=== PATIENT | male | born 1955 | race Caucasian/White ===

== ENCOUNTER 2017-08-22 04:10 | Emergency (ER) | payer SELFPAY ==
[~2017-08-22] VITALS: Ht 165.1 cm; Wt 68.0 kg
[2017-08-22] MEDS ORDERED: Vibramycin100 MG PO (05:57)
== END 2017-08-22 06:15 | disposition home or self-care (01) ==
LOC: ER 04:10
DX: L97.819 Non-pressure chronic ulcer of other part of right lower leg with unspecified severity (principal); L03.115 Cellulitis of right lower limb; Z88.0 Allergy status to penicillin; J44.9 Chronic obstructive pulmonary disease, unspecified; F17.200 Nicotine dependence, unspecified, uncomplicated
CPT/HCPCS: 73590; 99283

== ENCOUNTER 2021-04-06 12:41 | Inpatient (IN) | payer OTHER ==
[~2021-04-06] VITALS: Ht 165.1 cm; Wt 52.8 kg
[~2021-04-06 12:41] MED LIST: Vibramycin100 MG PO
[2021-04-06 13:32] LABS: BASOPHILS ABSOLUTE AUTO 0.06 K/mm3 (0.00-0.23); BASOPHILS PERCENT AUTO 1 % (0-2); EOSINOPHILS ABSOLUTE AUTO 0.08 K/mm3 (0.00-0.68); EOSINOPHILS PERCENT AUTO 1 % (0-6); Hematocrit 32.6 % (37.0-53.0); Hemoglobin 10.3 g/dL (13.5-17.5); IMMATURE GRAN ABSOLUTE AUTO 0.05 K/mm3 (0.00-0.10); IMMATURE GRAN PERCENT AUTO 0 % (0-1); LYMPHOCYTES ABSOLUTE AUTO 0.96 K/mm3 (0.84-5.20); LYMPHOCYTES PERCENT AUTO 7 % (21-46); MONOCYTES ABSOLUTE AUTO 1.06 K/mm3 (0.16-1.47); MONOCYTES PERCENT AUTO 8 % (4-13); Mean Corpuscular HGB Conc 31.6 g/dL (31.5-36.5); Mean Corpuscular Volume 86 fL (80-100); Mean Platelet Volume 9.4 fL (9.1-12.4); NEUTROPHILS ABSOLUTE AUTO 10.85 K/mm3 (1.96-9.15); NEUTROPHILS PERCENT AUTO 83 % (41-73); Platelet Count 687 K/mm3 (150-400); RDW Coefficient Variation 13.5 % (11.7-14.2); RDW Standard Deviation 42.3 fL (35.1-46.3); Red Blood Cell Count 3.81 M/mm3 (4.30-5.90); White Blood Cell Count 13.06 K/mm3 (4.00-11.30)
[2021-04-06 13:39] LABS: Alanine Aminotransfer (ALT/SGP 17 U/L (12-78); Albumin, Blood 1.9 g/dL (3.4-5.0); Albumin/Globulin Ratio 0.3 (0.8-1.8); Alk Phos 80 U/L (50-136); Anion Gap 8 mmol/L (6-16); Aspartate Aminotrans (AST/SGOT 11 U/L (12-37); Bilirubin, Total 0.4 mg/dL (0.1-1.0); Blood Urea Nitrogen 13 mg/dL (8-24); Bun/Creatinine Ratio 19.4 (12.0-20.0); CO2, Blood 24 mmol/L (21-32); Calcium, Blood 9.4 mg/dL (8.5-10.1); Chloride, Blood 102 mmol/L (98-108); Creatinine, Blood 0.67 mg/dL (0.60-1.20); Globulin, Blood 5.5 g/dL (2.2-4.0); Glomerular Filtration Rate >60 (60-); Glucose, Blood 117 mg/dL (70-99); Potassium, Blood 3.9 mmol/L (3.5-5.5); Sodium, Blood 134 mmol/L (136-145); Total Protein, Blood 7.4 g/dL (6.4-8.2)
[2021-04-06 17:35] LABS: Source, Urine Clean Catch
[2021-04-06 18:02] LABS: Color, Urine Brown (P-Yellow)
[2021-04-06 18:03] LABS: Appearance, Urine Turbid (Clear)
[2021-04-06 18:09] LABS: Red Blood Cells, Urine TNTC /hpf (0-2); White Blood Cells, Urine TNTC /hpf (0-5)
[2021-04-06 18:10] LABS: Bacteria Many /hpf; Squamous Epithelial Cells Few /hpf (Few)
[2021-04-06 18:11] LABS: Cholesterol Crystals Few /hpf; Triple Phosphate Crystals Many /hpf
[2021-04-06 18:12] LABS: Other Crystals Mod /hpf
[2021-04-06 18:15] LABS: Mucus Heavy (0-Heavy)
[2021-04-07 00:41] LABS: Influenza A, PCR NEGATIVE (NEGATIVE); Influenza B, PCR NEGATIVE (NEGATIVE); Resp Syncytial Virus, PCR NEGATIVE (NEGATIVE); SARS-Cov-2 (COVID-19) PCR, MMC NEGATIVE (NEGATIVE)
[2021-04-07 04:30] LABS: Hemoglobin 8.5 g/dL (13.5-17.5); Mean Corpuscular HGB 26.6 pg (26.0-34.0); Mean Corpuscular HGB Conc 31.5 g/dL (31.5-36.5); Mean Corpuscular Volume 85 fL (80-100); Mean Platelet Volume 9.2 fL (9.1-12.4); Platelet Count 612 K/mm3 (150-400); RDW Coefficient Variation 13.7 % (11.7-14.2); RDW Standard Deviation 42.4 fL (35.1-46.3); Red Blood Cell Count 3.19 M/mm3 (4.30-5.90)
--- NOTE | 2021-04-07 04:49 | NUR ---
PATIENT WAS ALERT AND ORIENTED X4, STABLE VITAL SIGNS, NO ACUTE CHANGES. PATIENT DENIED ANY PAIN. PATIENT SLEPT MOST OF THE NIGHT. CALL LIGHT WITH IN REACH AND BED DOWN TO THE LOWEST POSITION. WILL CONTINUE TO MONITOR UNTIL HAND OFF.
[2021-04-07 05:33] LABS: Anion Gap 6 mmol/L (6-16); Blood Urea Nitrogen 15 mg/dL (8-24); Bun/Creatinine Ratio 24.8 (12.0-20.0); CO2, Blood 23 mmol/L (21-32); Calcium, Blood 8.2 mg/dL (8.5-10.1); Chloride, Blood 109 mmol/L (98-108); Creatinine, Blood 0.61 mg/dL (0.60-1.20); Ferritin, Serum 263 ng/mL (26-388); Glomerular Filtration Rate >60 (60-); Glucose, Blood 117 mg/dL (70-99); Iron Serum 9 ug/dL (65-175); Percent Saturation 6.9 % (20.0-50.0); Potassium, Blood 4.5 mmol/L (3.5-5.5); Sodium, Blood 138 mmol/L (136-145); Total Iron Binding Capacity 130 ug/dL (250-450)
--- NOTE | 2021-04-08 02:12 | NUR ---
PHYSICIAN COMMUNICATION CONTACTED KITCHEN AND COUNTER WORKER PHYSICIAN, DR LOPEZ, AT 0 TO NOTIFY HIM THAT THE PATIENT HAD POSITIVE BLOOD CULTURES THAT WERE GRAM POSITIVE COCCI IN CLUSTERS AND THAT THE PARMACIST SAID THAT THE PATIENT'S CURRENT ANTIBIOTIC COVERAGE SHOULD BE SUFFICIENT. NO ORDERS GIVEN. ALSO NOTIFIED HIM THAT THE PATIENT'S CATHETER KEEPS CLOGGING WITH SEDIMENT AND LEAKING EVEN AFTER IT BEING CHANGED IN THE ED AND UP ON THE FLOOR DESPITE ATTEMPTS TO MANUALLY FLUSH THE CATHETER AND TO ASK IF THE PATIENT WOULD BENEFIT FROM CONTINUOUS BLADDER IRRIGATION. DR LOPEZ SAID TO GO AHEAD AND TRY.
[2021-04-08 05:15] LABS: Hemoglobin 7.9 g/dL (13.5-17.5); Mean Corpuscular HGB 26.8 pg (26.0-34.0); Mean Corpuscular HGB Conc 31.6 g/dL (31.5-36.5); Mean Corpuscular Volume 85 fL (80-100); Mean Platelet Volume 9.7 fL (9.1-12.4); Platelet Count 547 K/mm3 (150-400); RDW Coefficient Variation 13.7 % (11.7-14.2); RDW Standard Deviation 42.5 fL (35.1-46.3); Red Blood Cell Count 2.95 M/mm3 (4.30-5.90); White Blood Cell Count 10.12 K/mm3 (4.00-11.30)
[2021-04-08 06:08] LABS: Anion Gap 9 mmol/L (6-16); Blood Urea Nitrogen 16 mg/dL (8-24); Bun/Creatinine Ratio 24.7 (12.0-20.0); CO2, Blood 22 mmol/L (21-32); Calcium, Blood 8.1 mg/dL (8.5-10.1); Chloride, Blood 107 mmol/L (98-108); Creatinine, Blood 0.65 mg/dL (0.60-1.20); Glomerular Filtration Rate >60 (60-); Glucose, Blood 108 mg/dL (70-99); Potassium, Blood 4.4 mmol/L (3.5-5.5); Sodium, Blood 138 mmol/L (136-145)
--- NOTE | 2021-04-08 07:10 | NUR ---
SHIFT SUMMARY PATIENT ALERT AND ORIENTED. MEDICATED PER EMAR FOR FEVER. HAS LESS COMPLAINTS DISCOMFORT SINCE STARTING CONTINUOUS BLADDER IRRIGATION. NO COMPLAINTS OF SHORTNESS OF BREATH. NO OTHER ISSUES NOTED OVERNIGHT. BED IN LOWEST POSITION. CALL LIGHT WITHIN REACH. REPORT GIVEN TO ONCOMING RN.
--- NOTE | 2021-04-08 18:51 | NUR ---
PT AAOX4 ABLE TO MAKE NEEDS KNOWN. COMPLAINT WITH MEDIACTION REGIMEN. CONTINUOUS BLADDER IRRIGATION IN PROGRESS, CLEAR OUTPUT NOTED WITH SEDIMENTS. PATIENT C/O PAIN TO ABDOMINAL AREA, MEDICATED PER ORDER, EFFECTIVE OUTCOME VOICED. IV ABT CONTINUES NO ADVERSE REACTION NOTED. BED IN LOWEST POSITION. CALL LIGHT IN REACH.
--- NOTE | 2021-04-09 03:33 | NUR ---
VERGARA/ BLADDER IRRIGATION AROUND 0 WE BEGAN HAVING ISSUES WITH CATHETER, VERGARA STARTED LEAKING HEAVILY AT U[place]TH[place], AND HAD COMPLETELY STOPPED FLOWING. PRIOR TO THAT TIME CONTINUOUS BLADDER IRRIGATION HAD BEEN FLOWING WIHTOUT ANY ISSUES. I MANUALLY IRRIGATED WITHOUT SUCCESS. STUMMEL SELECTOR OCTAVIO BOSWELL WAS ABLE TO IRRIGATE AND GET CATHETER TO FLOW FOR A SHORT TIME BUT WITHIN A HALF HOUR CATHETER CLOGGED AGAIN. I TRIED IRRIGATING AGAIN WITHOUT SUCCESS. 0000 I DISCUSSED WITH STUMMEL SELECTOR OCTAVIO BOSWELL THAT CATHETER HAD CLOGGED AGAIN. WE DECIDED TO CONSULT ICU STUMMEL SELECTOR AL DURÁN WHO SUGESSTED CHANGING OUT CATHETER COMPLETELY TO SEE IF THAT WOULD SOLVE ISSUE. 0115 THIS RN REPLACED CATHETER WITH A 20 F, 30 CC ML BALLOON THREE WAY VERGARA. CATHETER INSERTION WAS DIFFICULT AND REQUIRED THE ASSISTANCE OF TWO RN'S. MORIAH SOUZA, AND TOM UNGER. AFTER INSERTION WE GOT URINE FLOW AND OBTAINED ABOUT 300 MLS OF YELLOW URINE WITH HEAVY SEDIMENT. BUT WITHIN 5 MINUTES CATHETER STOPPED FLOWING AGAIN. THIS RN AND TOM UNGER IRRIGATED AGAIN AND PULLED OUT A THICK MUCOUS PLUG BUT CATHETER REMAIN CLOGGED AND WOULD NOT FLOW. DR. VICK CALLED INITALLY AT 2330 TO NOTIFY HER OF THE ISSUES WE WERE HAVING WITH PAITENT'S CATHETER. DR. ALDANA AWARE THAT NEW CATHETER WAS TO BE PLACED. 0315 DR. VICK CALLED AND NOTIFIED THAT NEW CATHETER PLACEMENT WAS UNSUCCESSFUL AND THAT CATHETER STILL WOULD NOT DRAIN DESPITE MANUAL IRRIGATION AND REPOSITIONING OF THE CATHETER. DR. VICK SUSPECTS THAT BLADDER MASS IS OBSTRUCTING THE FLOW OF URINE AND PREVENTING THE CATHETER FROM DRAINING. NO UROLOGY AT THIS FACILITY. DR. ALDANA DOES NOT WANT TO GO THROUGH WITH COBRA TRANSFER AT THIS TIME, AND WOULD LIKE STAFF TO PERFORM Q2HR BLADDER SCANS. SHE STATES THAT COBRA TRANSFER CAN BE ARRANGED IN THE MORNING DURING DAYSHIFT. BLADDER SCAN READINGS REMAIN LOW, BUT GETTING AN ACCURATE READING IS DIFFICULT POSSIBLY DUE TO THE MASS. IRRIGATION HAS BEEN STOPPED. PT MEDICATED FOR PAIN, MONITORING CLOSELY. BOTH STUMMEL SELECTOR'S AND NURSING STOVE BOTTOM WORKER DIANNA LLAMAS MADE AWARE.
[2021-04-09 05:06] LABS: Hemoglobin 8.1 g/dL (13.5-17.5); Mean Corpuscular HGB 26.7 pg (26.0-34.0); Mean Corpuscular HGB Conc 31.2 g/dL (31.5-36.5); Mean Corpuscular Volume 86 fL (80-100); Mean Platelet Volume 9.7 fL (9.1-12.4); Platelet Count 583 K/mm3 (150-400); RDW Coefficient Variation 13.6 % (11.7-14.2); RDW Standard Deviation 42.8 fL (35.1-46.3); Red Blood Cell Count 3.03 M/mm3 (4.30-5.90); White Blood Cell Count 9.69 K/mm3 (4.00-11.30)
[2021-04-09 05:54] LABS: Anion Gap 8 mmol/L (6-16); Blood Urea Nitrogen 17 mg/dL (8-24); Bun/Creatinine Ratio 27.5 (12.0-20.0); CO2, Blood 25 mmol/L (21-32); Calcium, Blood 8.4 mg/dL (8.5-10.1); Chloride, Blood 106 mmol/L (98-108); Creatinine, Blood 0.62 mg/dL (0.60-1.20); Glomerular Filtration Rate >60 (60-); Glucose, Blood 109 mg/dL (70-99); Potassium, Blood 4.1 mmol/L (3.5-5.5); Sodium, Blood 139 mmol/L (136-145)
--- NOTE | 2021-04-09 08:12 | NUR ---
SHIFT SUMMARY: AOX3, QUITE BUT COOPERATIVE. FRAIL APPEARING, CACHEXIA. DENIES PAIN OR DISCOMFORT. CONTINUOUS BLADDER IRRIGATION WITH 300 IN, IRRIGATION HAS BEEN SLOW DUE TO CATHETER NOT FLOWING WELL. DURING HIS SLEEP APPARENTLY IT PLUGGED AND BACKFLOWED ONTO THE BED. FLUSHED CATHETER SEVERAL TIMES FOR IT TO FLOW WELL. INCREASED IRRIGATION TO HAVE EVEN FLOW. SLEPT WELL T/O THE NIGHT. FEBRILE AT 100. TYLENOL GIVEN. LAST TEMP 98.9. HYPOTENSIVE AT TIMES IN THE 90'S. NO OTHER CHANGES TO REPORT. CALL LIGHT IN REACH.
--- NOTE | 2021-04-09 10:48 | NUR ---
PATIENT ALERT AND ORIENTED X4. NEURO WNL. PERRLA. ABLE TO MOVE ALL EXTREMITIES. OVERALL WEAKNESS NOTED. WORKING WITH PHYSICAL THERAPY. ON ROOM AIR, SATING HIGH 90'S. LUNGS SOUNDING CLEAR. NO COUGH. NO TELE. BP STABLE WITH SBP IN 90'S AND HR 70'S. DENIES CHEST PAIN/PRESSURE. TEMP WNL. DENIES ABDOMINAL PAIN/NAUSEA. [address] WITH CONTINUOUS IRRIGATION. HAVING TO MANUALLY IRRIGATED WITH 40ML TO DISLODGE SEDIMENT ABOUT EVERY HOUR. NO BLOOD VISIBLE IN VERGARA DRAINAGE. SEDIMENT AND YELLOW TINGED. NOT EATING VERY WELL, SMALL APPETITE. ABLE TO TAKE PILLS WHOLE WITH WATER. PHYSICAL THERAPY IN TO SEE PATIENT THIS AM. OVERALL WEAKNESS. CALL LIGHT IN REACH. SLEEPING ON AND OFF. DENIES NEEDS AT THIS TIME. WILL CONTINUE TO MONITOR.
--- NOTE | 2021-04-09 18:24 | NUR ---
SHIFT SUMMARY: NO ACUTE CHANGES. PATIENT SLEPT MOST OF DAY. BLADDER IRRIGATION CONTINUES. HAVING TO DO MANUAL IRRIGATION EVERY 1-2 HOURS TO REMOVE SEDIMENT THAT GETS CLOGGED. BP ON SOFTER SIDE. PATIENT DENIES BEING DIZZY. ANTIBIOTICS INFUSED. EATING DINNER AT THIS TIME. DENIES NEEDS WILL CONTINUE TO MONITOR AND REPORT OFF.
--- NOTE | 2021-04-10 01:15 | NUR ---
VERGARA CATHETER NEW CATHETER INSERTED. 20 F, [address] VERGARA[address] AMANDA SOUZA ASSISTED WITH CATHETER INSERTION IT WAS VERY DIFFICULT TO PLACE VERGARA. MORIAH ADVANCED CATHETER AND INFLATED BALLOON. STERILE TECHNIQUE MAINTAINED. CATHETER BEGAN TO FLOW AND INITIALLY WE OBTAINED 300 CC OF YELLOW URINE WITH SEDIMENT, BEFORE CATHETER STOPPED FLOWING.
--- NOTE | 2021-04-10 01:30 | NUR ---
SCAN WAS 21MLS POST NEW 20FR VERGARA INSERTION. PATENT AND DRAINAING YELLOW, CLOUDY URINE W/SEDIMENT AD PINK/BROWN SLOUGH. APPROX 300 MLS UO UPON ESTABLISHING VERGARA DRAINAGE. BLADDER IRRIGATION RESTARTED AT THIS TIME.
--- NOTE | 2021-04-10 01:45 | NUR ---
VERGARA CATH NO LONGER PATENT OR DRAINING ONCE AGAIN. BLADDER IRRIGATION TEMPORARILY STOPPED AND STAFF ATTEMPTED TO MANUALLY FLUSH/EXPEL SEDIMENT THAT WAS BLOCKING DRAINAGE. BLADDER SCAN AT THIS TIME NOW 84MLS AND PT COMPLAINING OF PAIN, SPASMS AND DISTENSION. LARGE AMT OF SLOUGH AND SEDIMENT MANUALLY REMOVED BUT IT REQUIRED MULTIPLE ROUNDS OF FLUSHING AND EXPELLING TO MAINTAIN ANY PATENCY. EVEN STILL URINE WAS NOTED TO BE LEAKING AT MEATUS AROUND CATHETER. BLADDER IRRIGATION RESTARTED W/LIGHT YELLOW URINE NOTED TO LEAK AROUND CATH DESPITE PATENCY AND CLEAR YELLOW URINE W/SEDIMENT DRAINING TO BAG. WILL MONITOR CLOSELY AND TROUBLESHOOT PRN.
--- NOTE | 2021-04-10 04:20 | NUR ---
DISCUSSED WITH DR DIAZ VIA TELEPHONE THE DIFFICULTIES OF THE BLADDER IRRIGATION NOT WORKING WELL. IT IS NOT DRAINING AT ALL VIA THE VERGARA WITH CONTINUOUS BLADDER IRRIGATION GOING, EVEN WHEN RUN AT A HIGHER RATE, INSTEAD THE BLADDER IRRIGATION FLUID LEAKS OUT AROUND THE VERGARA. THERE DOES NOT APPEAR TO BE ANY URINE IN THE FLUID THAT LEAKS OUT, IT IS CLEAR FLUID. WHEN MANUALLY IRRIGATING, A SMALL AMOUNT, ABOUT 50 MLS, WILL COME OUT WITH QUITE A BIT OF SEDIMENT AND CLOUDY/YELLOW. THAT WILL FLOW FOR A FEW SECONDS AND THEN STOP. INITIALLY WHEN MANUALLY IRRIGATING YOU COULD PULL BACK WHAT YOU FLUSHED IN TO THE BLADDER. NOW HOWEVER, WE ARE UNABLE TO PULL BACK WHAT WE HAVE FLUSHED IN TO THE BLADDER. HOWEVER, STATED ABOVE, WHEN UNCLAMPED AFTER FLUSHING INTO THE BLADDER, IT WILL DRAIN A SMALL AMOUNT OUT. BUT NOT EVERY TIME, AT TIMES NOTHING DRAINS OUT EVEN WITH MANUAL IRRIGATION. WE ATTEMPTED MULT TIMES TO DO A BLADDER SCAN, IT WILL ONLY CORE SETTER 30 MLS, I THINK THIS MIGHT BE THE BALOON OF THE VERGARA AND NOT THE BLADDER IT IS READING. I SPOKE WITH DR ALDANA ABOUT THE POSSIBLE NEED FOR A RADIOLOGY SCAN TO REEVALUATE WHAT IS HAPPENING WITH THE PATIENTS BLADDER. NO ORDERS FOR THAT AT THIS TIME. I ALSO SPOKE WITH HER REGARDING THE CONCERN FOR THE NEED FOR UROLOGY INTERVENTION. ORDERS TO CONTINUE TO BLADDER SCAN Q 1-2 HOURS, TRANSFER TO PCU FOR HIGHER LEVEL OF CARE AND CLOSER MONITORING AND TO READDRESS THE POSSIBLE TRANSFER TO ANOTHER FACILITY FOR UROLOGY LATER THIS MORNING.
--- NOTE | 2021-04-10 04:32 | NUR ---
TRANSFER PT TO BE TRANSFER TO ICU, PCU STATUS FOR CLOSER MONITORING AND Q 2HR BLADDER SCANS. REPORT GIVEN TO AL VERGARA RELATIONSHIP ASSOCIATE. PT RESTING IN BED AT THIS TIME WITHOUT DISTRESS AND IS WITHOUT PAIN.
--- NOTE | 2021-04-10 04:41 | NUR ---
VERGARA/ BLADDER IRRIGATION AROUND 2329 WE BEGAN HAVING ISSUES WITH CATHETER, VERGARA STARTED LEAKING HEAVILY AT URETH[place], AND HAD COMPLETELY STOPPED FLOWING. PRIOR TO THAT TIME CONTINUOUS BLADDER IRRIGATION HAD BEEN FLOWING WIHTOUT ANY ISSUES, AND PT DID NOT HAVE ANY COMPLAINTS OF PAIN. WHEN CATHETER STOPPED FLOWING I MANUALLY IRRIGATED WITHOUT SUCCESS. NOTE KEEPER OCTAVIO BOSWELL WAS ABLE TO IRRIGATE AND GET CATHETER TO FLOW FOR A SHORT TIME BUT WITHIN A HALF HOUR CATHETER CLOGGED AGAIN. I TRIED IRRIGATING AGAIN WITHOUT SUCCESS. 0000: I DISCUSSED WITH NOTE KEEPER OCTAVIO BOSWELL THAT CATHETER HAD CLOGGED AGAIN. WE DECIDED TO CONSULT ICU NOTE KEEPER AL DURÁN WHO SUGESSTED CHANGING OUT CATHETER COMPLETELY TO SEE IF THAT WOULD SOLVE ISSUE. 0115: THIS RN REPLACED CATHETER WITH A 20 F, 30 CC ML BALLOON THREE WAY VERGARA. CATHETER INSERTION WAS DIFFICULT AND REQUIRED THE ASSISTANCE OF TWO RN'S. MORIAH SOUZA, AND TOM UNGER. AFTER INSERTION WE GOT URINE FLOW AND OBTAINED ABOUT 300 MLS OF YELLOW URINE WITH HEAVY SEDIMENT. BUT WITHIN 5 MINUTES CATHETER STOPPED FLOWING AGAIN. THIS RN AND TOM UNGER IRRIGATED AGAIN MULTPLE TIMES AND PULLED OUT A THICK MUCOUS PLUG BUT CATHETER REMAIN CLOGGED AND WOULD NOT FLOW. THIS RN AND NOTE KEEPER'S WERE WITH PT FROM 2329 UNTIL TRANSFER TO ICU/PCU STATUS AT 439. BLADDER SCANS PERFORMED BUT CAME READINGS UNDER 100CC, READINGS WERE DIFFERENT WITH EACH SCAN AND MOST LIKELY INACCURATE. DR. VICK MADE AWARE OF THIS BUT DID NOT WANT TO ORDER ABDOMINAL CT TO GET A CLOSER LOOK AT BLADDER.
--- NOTE | 2021-04-10 04:55 | NUR ---
TRANSFERRED PT TRANSFERRED TO ICU 8/ PCU STATUS AT 0448, REPORT HAS BEEN GIVEN. PT BELONGINGS IN PLACE.
--- NOTE | 2021-04-10 05:08 | NUR ---
PATIENT ARRIVED TO UNIT AT APPROXIMATELY 0450 VIA STRETCHER; SLIDE FROM MEDICAL TO ICU STRETCHER WITH MAX ASSIST. CONT. BLADDER IRRIGATION CLAMPED. PATIENT ALERT AND ORIENTED X4; PATIENT REPORTS HEADACHE 7/10 AND PENIS PAINFUL TO TOUCH DUE TO MULTIPLE CATHETER INSERTIONS AND IRRIGATION. PATIENT ONLY OTHER COMPLAINT IS HE IS COLD; WARM BLANKETS GIVEN. FORCEFUL TURBULENT BLADDER IRRIGATION DONE WITH LARGE SYRINGE DIFFICULT WITH ALOT OF SEDIMENT NOTED; ABLE TO BLADDER IRRIGATION FLOW TO START AGAIN AND CURRENTLY RUNNING. PATIENT REPORTS FEELING LESS PRESSURE AND MORE COMFORTABLE. CONSENTS SIGNED. SR ON HEART MONITOR; OXYGEN SATURATION ABOVE 90% ON ROOM AIR. PIV S/L.
--- NOTE | 2021-04-10 05:45 | NUR ---
PATIENT CALLED STAFF TO ROOM TO REPORT THAT CATHETER LEAKING; TURBULENT FORCEFUL BLADDER IRRIGATION COMPLETED AGAIN BY COLLOID MILL OPERATOR AND CHUNKS OF TISSUE AND SEDIMENT IN LINE; CONTINOUS DRAINIAGE RESTARTED.
--- NOTE | 2021-04-10 06:48 | NUR ---
CONTINUOUS BLADDER IRRIGATION FLOWING WELL; SEDIMENT NOTED. NO OTHER ACUTE CHANGES TO REPORT.
--- NOTE | 2021-04-10 07:27 | NUR ---
PT A&OX4. PT DENIES PAIN AT THIS TIME. ECG SHOWS SR. SBP TRENDING 90'S WITH MAP 70. LUNGS COARSE TO UPPER LOBES AND DIMINISHED IN THE BASES. SCATTERED WHEEZES T/O LEFT. PT DENIES SOB. OCCASIONAL, MOIST, NONPRODUCTIVE COUGH. SATS>90% ON RA. PT DENIES NAUSEA, BUT REPORTS HAVING HAD A VERY POOR APPETITE FOR SOME TIME. PT APPEARS EMACIATED. THREE WAY VERGARA WITH CONTINUOUS IRRIGATION CONTINUES-URINE APPEARS CLEAR, YELLOW AND NO SEDIMENT NOTED AT THIS TIME. PT ABLE TO REPOSITION HIMSELF IN BED. CALL LIGHT WITHIN REACH-PT WILL CALL FOR ASSIST PRN.
--- NOTE | 2021-04-10 11:15 | NUR ---
PT HAS BEEN SLEEPING INTERMITTENTLY WHEN NOT DISTURBED. VS WDL. [address] JAI NOTED WITH SOME SEDIMENT-IRRIGATED TO CLEAR. PT DENIES PAIN OR OTHER COMPLAINTS AT THIS TIME. PT REQUESTS TO "GET SOME MORE REST." REQUEST GRANTED. PT STATES THAT HE WILL CALL FOR ASSIST PRN. CALL LIGHT WITHIN REACH.
--- NOTE | 2021-04-10 15:24 | NUR ---
PT RESTS WHEN NOT DISTURBED. VS STABLE. PT DENIES PAIN/DISCOMFORT AT THIS TIME. [address] VERGARA IRRIGATED APROX. EVERY 1 HOUR DUE TO SEDIMENT.
--- NOTE | 2021-04-10 17:37 | NUR ---
PT ATE 100% OF DINNER TRAY. PT SITTING UP IN BED WATCHING TV WITHOUT NOTED DISTRESS. CALL LIGHT WITHIN REACH.
--- NOTE | 2021-04-10 19:00 | NUR ---
PT SUMMONED RN INTO ROOM. PT REPORTS 8/10 BLADDER PAIN. VERGARA LEAKING AROUND THE URETHRA. VERGARA IRRIGATED AND LARGE AMOUNT OF THICK, GRAYISH SEDIMENT AND CLOTS REMOVED. PT MED WITH FENTANYL 25 MCG IVP X 1 FOR PAIN. REPORT GIVEN TO TAPAN LISA.
--- NOTE | 2021-04-10 20:37 | NUR ---
PATIENT RESTING QUIETLY WATCHING TV. VERGARA DRAINING YELLOW URINE WITH WHITE SEDIMENT WITH IRRIGATION SET UP FOR FREQUENT BLADDER IRRIGATIONS DUE TO THE SEDIMENT CLOGGING VERGARA CATH. ABD SOFT SLIGHTLY TENDER. PATIENT ABLE TO POSITION SELF IN BED FOR COMFORT.
[2021-04-11 03:55] LABS: Hematocrit 25.7 % (37.0-53.0); Hemoglobin 8.2 g/dL (13.5-17.5)
[2021-04-11 04:12] LABS: Albumin, Blood 1.7 g/dL (3.4-5.0); Anion Gap 5 mmol/L (6-16); Blood Urea Nitrogen 18 mg/dL (8-24); Bun/Creatinine Ratio 32.3 (12.0-20.0); CO2, Blood 27 mmol/L (21-32); Calcium, Blood 8.7 mg/dL (8.5-10.1); Chloride, Blood 103 mmol/L (98-108); Creatinine, Blood 0.56 mg/dL (0.60-1.20); Glomerular Filtration Rate >60 (60-); Glucose, Blood 109 mg/dL (70-99); Phosphorus, Blood 3.3 mg/dL (2.5-4.9); Potassium, Blood 4.5 mmol/L (3.5-5.5); Sodium, Blood 135 mmol/L (136-145)
--- NOTE | 2021-04-11 05:56 | NUR ---
SUMMARY PATIENT SLEEPING OFF AND ON T/O NIGHT. AWAKENS WITH C/O BURNING TYPE PAIN TO BLADDER AREA. SLOW CONTINUOUS IRRIGATION TO VERGARA, DRAINING YELLOW WITH WHITE SEDIMENT URINE. VERGARA MANUALLY IRRIGATED AND REMOVED LARGE THICK WHITE SEDIMENT TWICE DURING THE NIGHT. PATIENT MEDICATED APROX EVERY 2 HRS WITH FENTANYL FOR C/O BLADDER PAIN.
--- NOTE | 2021-04-11 08:45 | NUR ---
INITIAL ASSESSMENT PATIENT ALERT AND ORIENTED X 4, AFEBRILE. PATIENT HAS FLAT AFFECT, COOPERATIVE. PATIENT WEAK BUT ABLE TO MOVE ALL EXTREMITIES AND REPOSITION SELF IN BED. PATIENT BEING GIVEN PRN PAIN MEDS FOR COMPLAINTS OF BLADDER PAIN. PATIENT SATTING 90% AND GREATER ON RA. LUNGS CLEAR IN UPPER LOBES AND DIMINISHED IN LOWER LOBES. PATIENT IN SR, HR IN THE 70S. BP 100/57. LAST BM DOCUMENTED ON 04/08. PATIENT CACHECTIC. [address] WITH CONTINUOUS BLADDER IRRIGATION. URINE IS MENA IN COLOR WITH LARGE AMOUNTS OF WHITE SEDIMENT. SKIN PALE AND FRAGILE. SCATTERED BRUISING NOTED. IV FLUSHED AND SALINE LOCKED. BED LOW, CALL LIGHT IN REACH. WILL CONTINUE TO MONITOR PATIENT FREQUENTLY THROUGHOUT SHIFT.
--- NOTE | 2021-04-11 12:00 | NUR ---
PATIENT AFEBRILE. HR IN THE 70S. SBP IN THE 90S. 22 BELARUSIAN VERGARA PLACED. Q1H MANUAL BLADDER IRRIGATION. NO OTHER ACUTE CHANGES TO NOTE ON AT THIS TIME.
[2021-04-11 12:21] LABS: Source, Urine Foley catheter
[2021-04-11 12:38] LABS: Appearance, Urine Clear (Clear); Bilirubin, Urine Neg (Neg); Blood, Urine 4+ (Neg); Color, Urine Yellow (P-Yellow); Glucose Qualitative, Urine Neg (Neg); Ketones, Urine Neg (Neg); Leukocyte Esterase, Urine 3+ (Neg); Nitrite, Urine Neg (Neg); Protein, Urine 3+ (Neg); Specific Gravity, Urine 1.005 (1.003-1.022); Urobilinogen, Urine NORM (Normal)
[2021-04-11 12:48] LABS: Amorphous Mod (0-Heavy); Bacteria Many /hpf; Mucus Light (0-Heavy); Red Blood Cells, Urine 25-50 /hpf (0-2); Squamous Epithelial Cells Few /hpf (Few)
[2021-04-11 12:49] LABS: Renal Epithelial Rare /hpf (0-Rare); WBC Cast 0-2 /lpf (0)
--- NOTE | 2021-04-11 13:00 | NUR ---
SHIFT SUMMARY PATIENT REMAINED ALERT AND ORIENTED X 4, AFEBRILE. PATIENT HAS BEEN NAPPING ON AND OFF. PATIENT REMAINS WITH FLAT AFFECT BUT COOPERATIVE. PATIENT REMAINS WEAK BUT ABLE TO REPOSITION SELF IN BED AND TRANSFER TO CHAIR WITH 1 PA. PAIN MEDICATION CHANGED TO PO FOR BLADDER PAIN. PATIENT REMAINS SATTING 90% AND GREATER ON RA. PATIENT HAS REMAINED IN SR, HR IN THE 70S. SBP 90S TO 100S. NO BM THIS SHIFT. PATIENT ATE WELL AT BREAKFAST. PATIENT CHANGED FROM REGULAR DIET TO SOFT BECAUSE HE HAS NO TEETH OR DENTURES. VERGARA CHANGED FROM 20 F TO [address] CONTINUOUS BLADDER IRRIGATION DC'D AT 1200. PATIENT TO BE TAUGHT TO PERFORM MANUAL BLADDER IRRIGATION Q1H WITH 60 MLS OF STERILE SALINE. MANUAL BLADDER IRRIGATION TO BEGIN AT 1300. EDUCATION PRINTED OUT AND PLACED ON FRONT OF PATIENT CHART. URINE HAS REMAINED MENA IN COLOR WITH LARGE AMOUNTS OF WHITE SEDIMENT DRAINING. NO CHANGE TO SKIN NOTED. ABD/ PELVIC CT PERFORMED THIS SHIFT. PATIENT WILL BE TRANSFERRING TO PCU, ROOM 02 SHORTLY.
--- NOTE | 2021-04-11 13:30 | NUR ---
PATIENT SUCCESSFULLY TRANSFERRED TO PCU, ROOM 02. ALL BELONGINGS SENT WITH PATIENT.
--- NOTE | 2021-04-11 13:45 | NUR ---
Assumed Care: Report recieved from Hayley [employer]. Patient arrived via WC and was SBA to the bed. He is alert and oriented with flat affect. HRR, SR in the 70s. LS with a faint exp wheeze on the right-biox wnl on RA. BT+. Patient has 20 turkmen peter cath, flushed with a total of 60cc sterile water at 20 cc increments, patient has cream colored tissue removed with bladder irrigation. Peter clear after irrigation. Blood pressure soft, see flow sheet. Patient is lying on his left side. He states he has 8/10 bladder pain that is chronic, he does not take anything for it at home. He denies other needs at this time. Call light in reach, will continue to monitor.
--- NOTE | 2021-04-11 18:44 | NUR ---
Summary: Patient was transferred from ICU 8 to PCU 2 this afternoon. He has been alert and oriented x4. He c/o bladder pain, he was medicated with Percocet per MD orders. Patient had peter catheter changed to a 20 maori and bladder irrigation was changed to manual Q1. Irrigation successful, draining some solid creamy white material with sediment. Patient states the bladder pain and "chunks" have been present for about the past year, once the pain increased and he started having hematuria he came to the hospital. LS CTA, biox has been WNL on RA. Blood pressure soft with a MAP remaining above 65. .BT+. Patient is resting comfortably at this time. Call light in reach, will report to omcoming RN.
[2021-04-12 04:05] LABS: Hematocrit 26.2 % (37.0-53.0); Hemoglobin 8.3 g/dL (13.5-17.5); Mean Corpuscular HGB 26.9 pg (26.0-34.0); Mean Corpuscular HGB Conc 31.7 g/dL (31.5-36.5); Mean Corpuscular Volume 85 fL (80-100); Mean Platelet Volume 9.4 fL (9.1-12.4); Platelet Count 681 K/mm3 (150-400); RDW Coefficient Variation 13.8 % (11.7-14.2); Red Blood Cell Count 3.09 M/mm3 (4.30-5.90); White Blood Cell Count 6.76 K/mm3 (4.00-11.30)
[2021-04-12 04:26] LABS: Albumin, Blood 1.8 g/dL (3.4-5.0); Anion Gap 6 mmol/L (6-16); Blood Urea Nitrogen 21 mg/dL (8-24); Bun/Creatinine Ratio 33.7 (12.0-20.0); CO2, Blood 28 mmol/L (21-32); Calcium, Blood 9.2 mg/dL (8.5-10.1); Chloride, Blood 102 mmol/L (98-108); Creatinine, Blood 0.62 mg/dL (0.60-1.20); Glomerular Filtration Rate >60 (60-); Glucose, Blood 119 mg/dL (70-99); Phosphorus, Blood 3.5 mg/dL (2.5-4.9); Potassium, Blood 4.2 mmol/L (3.5-5.5); Sodium, Blood 136 mmol/L (136-145)
--- NOTE | 2021-04-12 05:20 | NUR ---
SHIFT SUMMARY NO ACUTE CHANGES THIS SHIFT. VSS. AXO. IN SR. ON RA. VERGARA PATENT AND DRAINING. REQUIRED SOME RIGOROUS FLUSHING AT THE BEGINNING OF SHIFT BUT AROUND 0000, CATHETER HAS BEEN FREE FLOWING WITHOUT INTERVENTION. SEDIMENT CONTINUES IN URINE. MODERATE TO SEVERE PAIN TO BLADDER CONTINUES. MEDS PER EMAR APPEAR TO HELP. OTHERWISE, PT USING CALL LIGHT APPROPRIATELY. RESTING OFF AND ON IN ROOM.
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
[2021-04-12] MEDS ORDERED: DOCU100 PO (15:44)
[2021-04-12] MEDS ORDERED: Percocet 5-3251 EACH PO (15:45)
[2021-04-12] MEDS ORDERED: ASCO500 PO (15:46)
[2021-04-12] MEDS ORDERED: MIRALAX17 GM PO (15:46)
[2021-04-12] MEDS ORDERED: FERSU300 PO (15:48)
--- NOTE | 2021-04-12 17:54 | NUR ---
END OF SHIFT SUMMARY: PATIENT DENIES CHEST PAIN, HAS BEEN SR, SOFT BLOOD PRESSURES, HOWEVER, PATIENT IS RESTING AND CACHECTIC. HAS BEEN SATURATIONS OF 95% OR > ON RA. BLADDER IRRIGATION HAS BEEN TROUBLING AT Q 1 WE ARE STILL PULLING LARGE CLOTS THAT CAN PREVENT FLOW, ADDITIONALLY IT IS EXTREMELY PAINFUL FOR THE PATIENT. HOWEVER, GREAT OUTPUT ONCE CLOTS ARE REMOVED. PATIENT HAS NOT HAD A BM TODAY, BUT WAS ABLE TO TRANSFER WITH 1 ASSIST TO THE CHAIR, DEALING WITH THE BLADDER IRRIGATION THROUGH HIS 22 Fr VERGARA. POTENTIAL DISCHARGE 04/13/21. NEEDING UROLOGY APPOINTMENT BEFORE THIS CAN HAPPEN. COOPERATIVE IN CARE AND SHOULD BE ABLE TO FLUSH HIMSELF IF HE TRIES TONIGHT TO FLUSH HIMSELF. WILL CONTINUE TO MONITOR
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
--- NOTE | 2021-04-13 04:56 | NUR ---
SHIFT SUMMARY: PATIENT A&O, FLAT AFFECT, STABLE VS. VERGARA CONTINUES TO DRAIN TO GRAVITY WITH SEDIMENTATION. BLADDER IRRIGATION ~Q2-3HRS NEEDED. PATIENT BECAME IRRITABLE WHEN HE WAS AWOKEN FOR Q2 IRRIGATION AND STATED HE WOULD "LET {US} KNOW WHEN IT NEEDS DONE." EDUCATED PATIENT ON NEEDING TO DO IT REGULARLY TO AVOID INCREASED PAIN. PATIENT HAS SAFETY CONCERNS ABOUT RETURNING TO HIS CURRENT LIVING ARRANGEMENT, SEE PREVIOUS NOTES FROM SPIRITUAL CARE AND THIS RN. NO ADVERSE EVENTS THIS SHIFT. WILL CONTINUE TO MONITOR UNTIL SHIFT CHANGE.
--- NOTE | 2021-04-13 10:07 | NUR ---
PATIENT ALERT AND ORIENTED X4. NEURO WNL. OVERALL WEAKNESS. ONE PERSON ASSIST WITH WALKER. NOT INTERESTED IN TALKING. WHEN ASKED HOW HE IS DOING PATIENT STATES "I DONT KNOW". PATIENT FRUSTERATED WITH AM ASSESSMENT AND CARE, STATES "I JUST WOKE UP, I DON'T KNOW". ON ROOM AIR, LUNGS SOUNDING CLEAR. TELE SHOWING NSR WITH 1ST DEGREE BLOCK AND HR 70'S. BP ON SOFTER SIDE. DENIES CHEST PAIN/PRESSURE. COMPLAINS OF SOME ABDOMINAL DISCOMFORT. VERY MILD DISTENTION. BOWEL CARE MEDS GIVEN THIS AM. INTERMITTENT BLADDER IRRIGATION Q3 WITH STERILE WATER. VERGARA CATH IN PLACE DRAINING YELLOW/PINK TINGED URINE WITH SEDIMENT/CLOTS. DR. OSEI IN TO ASSESS THIS AM. PATIENT FRUSTERATED WITH HOME SITUATION. EATING VERY LITTLE. TAKING PILLS WHOLE WITH WATER. DENIES NEEDS AT THIS TIME. CALL LIGHT IN REACH. WILL CONTINUE TO MONITOR.
--- NOTE | 2021-04-13 10:53 | NUR ---
UPDATE: SPOKE WITH DR. OSEI. ORDERS TO USE NORMAL SALINE TO FLUSH VERGARA AND NOT STERILE SALINE.
[2021-04-13] MEDS ORDERED: SODIUM CHLORID100 ML IR (11:12)
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
--- NOTE | 2021-04-13 19:09 | NUR ---
SHIFT SUMMARY: NO ACUTE CHANGES. REMAINS ON ROOM AIR. MEDICAL STATUS, NO TELE. CONTINUING TO IRRIGATE VERGARA CATH Q2-Q3 HOURS WITH NORMAL SALINE. VERY LARGE BOWEL MOVEMENT THIS EVEING AFTER SUPPOSITORY. MEDICATED ONCE THIS SHIFT FOR PAIN. VITAL SIGNS STABLE. REPORTED OFF TO ONCOMING RN.
--- NOTE | 2021-04-14 01:02 | NUR ---
BLADDER IRRIGATION: PATIENT REFUSING BLADDER IRRIGATION T/O SHIFT. WILL CONTINUE TO OFFER.
--- NOTE | 2021-04-14 06:33 | NUR ---
SHIFT SUMMARY: PATIENT SYSTOLIC IN LOW 100S, DENIES SOB AND CHEST PAIN. MEDICATED PER EMAR FOR PAINFUL BLADDER TWICE THIS SHIFT, EDUCATED PATIENT ON USE OF PILL BUTTON PASTE UP ARTIST APPRENTICE LIGHT. PATIENT REQUESTED IRRIGATION ONCE THIS SHIFT - MINIMAL SEDIMENT PROCURED AND VERGARA DRAINING WELL. NO ADVERSE EVENTS THIS SHIFT; WILL REPORT TO DAY RN.
--- NOTE | 2021-04-14 10:47 | NUR ---
ALERT AND ORIENTED X4. NEURO WNL. ON ROOM AIR, DENIES SOB. NO TELE. MEDICAL STATUS. VITAL SIGN STABLE. DENIES CHEST PAIN/PRESSURE. SLEEPY THIS AM. IRON INFUSION COMPLETED. TAKING PILLS WHOLE WITH WATER. VERGARA CATH IN PLACE DRINAING TO GRAVITY. Q3-4 MANUAL IRRIGATION WITH NS. URINE CLEAR/YELLOW/PINK/SEDIMENT. LESS SEDIMENT THAN PREVIOUS SHIFT. DENIES NEEDS AT THIS TIME. WILL CONTINUE TO MONITOR. CALL LIGHT IN REACH.
--- NOTE | 2021-04-14 17:00 | NUR ---
Spoke with Primary RN Mabel prior to Pt visit and discussed case. Pt resting in bed with his eyes closed upon arrival. Pt wakes to gentle verbal stimuli and touch. Offered therapeutic listening as Pt expresses concerns regarding his living situation and potential of roomates spending his money. He reports his roomates has his debit card. Continued therapeutic listening. Discussed potential cancer diagnosis. Pt reports having plan in place for treatment. [facility] and will have treatment [facility] at [facility]. [facility]. Pt continues to vent with his concerns regarding his roomates and needing to find a different place to live. Continued therapeutic listening and offered suggestions. Ended visit to allow Pt to rest. Palliative Care will remain available.
--- NOTE | 2021-04-14 17:55 | NUR ---
SHIFT SUMMARY: NO ACUTE CHANGES. PATIENT REMAINS ALERT AND ORIENTED. VERY SLEEPY AND TIRED TODAY. OVERALL PATIENT STATES HE FEELS LIKE "CRAP". MEDICATED X1 FOR PAIN THIS SHIFT. MEDICAL STATUS NO TELE. REMAINS ON ROOM AIR. TOLERATING PO DIET. VERGARA CATH REMAINS IN PLACE DRAINING CLEAR/YELLOW URINE WITH SMALL AMOUNT OF SEDIMENT. MANUAL IRRIGATION NEEDED. PATIENT NOT WANTING TO PARTICIPATE IN DOING IRRIGATION HIMSELF. VISIT FROM PALLIATIVE CARE TODAY. VITAL SIGNS STABLE. WILL CONTINUE TO MONITOR AND REPORT OFF TO ONCOMING RN.
[2021-04-15 04:34] LABS: Albumin, Blood 2.2 g/dL (3.4-5.0); Anion Gap 4 mmol/L (6-16); Blood Urea Nitrogen 22 mg/dL (8-24); Bun/Creatinine Ratio 36.7 (12.0-20.0); CO2, Blood 30 mmol/L (21-32); Calcium, Blood 10.2 mg/dL (8.5-10.1); Chloride, Blood 102 mmol/L (98-108); Glomerular Filtration Rate >60 (60-); Glucose, Blood 108 mg/dL (70-99); Phosphorus, Blood 2.9 mg/dL (2.5-4.9); Potassium, Blood 4.4 mmol/L (3.5-5.5); Sodium, Blood 136 mmol/L (136-145)
--- NOTE | 2021-04-15 04:35 | NUR ---
ENVELOPE STUFFER SUMMARY PT TRANSFERED FROM PCU THIS SHIFT. AAOX4 AND PLEASANT. MEDICATED FOR PAIN X1 AT BEDTIME. VERGARA CATH IN PLACE DRAINING YELLOW URINE WITH MINIMAL AMOUNTS OF SEDIMENT NOTED. BLADDER IRRIGATED WITH 30 ML OF STERILE WATER Q3H, GOOD URINE FLOW. VSS, WILL CONTINUE TO MONITOR.
--- NOTE | 2021-04-15 09:32 | NUR ---
PT REPORTS BEING TIRED OF GETTING POKED BY NEEDLES (SQ AND NEW IV START). IV IN PLACE WAS NOT PATENT AND WAS PULLED, NEW IV ATTEMPTED BUT UNSUCCESSFUL, PT DID NOT TOLERATE IT WELL. PT IS NOW REFUSING ANY MORE ATTEMPTS FOR IV START.
--- NOTE | 2021-04-15 17:18 | NUR ---
SHIFT SUMMARY A/O X4, VSS, TOLERATING DIET, INDEPENDENT IN THE ROOM, NO IV ACCES R/T PT REFUSING NEW IV PLACEMENT, BLADDER IRRIGATION PERFORMED c SMALL AMT OF SEDIMENT FLUSHED OUT EACH TIME, DISCHARGE IN PLACE FOR TOMORROW AT 1000. NO ACUTE EVENTS THIS SHIFT, CALL LIGHT IN REACH, WILL CTM AND REPORT TO [place] PHELAN.
--- NOTE | 2021-04-16 05:47 | NUR ---
SUMMARY PT REPORTED HE DOES NOT PLAN TO GO TO FRIENDS HOME IN [facility] IN AM. STATES HAS NOWHERE PARTICULAR TO GO EXCEPT [facility] DOES NOT WANT TO GO TO [facility].PROMOTIONS DIRECTOR AWARE AND WILL REPORT INFO TO DAY CHARGE AND SS HAS BEEN WORKING WITH PT.
--- NOTE | 2021-04-16 09:56 | NUR ---
UPDATE PT ALERT AND ORIENTED. VS STABLE. VERGARA IRRIGATED WITH 60ML OF STERILE WATER AND YELLOW URINE WITH SMALL AMOUNT OF SEDIMENT NOTED. PT PROVIDED DC INSTRUCTIONS AND ALL QUESTIONS ANSWERED. PER VP BUSINESS DEVELOPMENT, TRANSPORT TO BE HERE AT 10AM TO TAKE PT TO THE [facility]. PT GIVEN HARD SCRIPT FOR PAIN MEDICATION AND ALL OTHER [facility] TO [facility].
== END 2021-04-16 10:30 | disposition home health service (06) | DRG 686 ==
LOC: ER 12:41 → MEDS 19:29 → ERHOLD 19:29 → MEDS 04-07 00:10 → ICUE 04-10 04:40 → PCU 04-11 13:30 → SURS 04-14 21:44
PROVIDERS: Emergency Medicine; Internal Medicine; Physician Assistant; ADMIT Internal Medicine
DX: C67.9 Malignant neoplasm of bladder, unspecified (principal); E43 Unspecified severe protein-calorie malnutrition; N13.30 Unspecified hydronephrosis; E87.1 Hypo-osmolality and hyponatremia; Z68.1 Body mass index [BMI] 19.9 or less, adult; R64 Cachexia; D62 Acute posthemorrhagic anemia; Z20.822 Contact with and (suspected) exposure to COVID-19; D50.9 Iron deficiency anemia, unspecified; K59.00 Constipation, unspecified; J44.9 Chronic obstructive pulmonary disease, unspecified; Z98.890 Other specified postprocedural states; F17.200 Nicotine dependence, unspecified, uncomplicated; Z88.0 Allergy status to penicillin
CPT/HCPCS: 0241U; 36415; 51700; 51701; 51702; 51798; 74176; 80048; 80053; 80069; 81001; 82607; 82728; 82746; 83540; 83550; 83605; 85014; 85018; 85025; 85027; 86850; 86900; 86901; 87040; 87086; 93005; 93010; 96365-59; 96375-59; 97110; 97116; 97161; 97165; 97530; 99285-25; A9270; J0696; J1650; J1885; J2916; J3010; J7030; J7050

== ENCOUNTER 2021-05-10 10:47 | Inpatient (IN) | payer OTHER ==
[~2021-05-10] VITALS: Ht 165.1 cm; Wt 55.4 kg
[~2021-05-10 10:47] MED LIST changes: +ASCO500 PO; +DOCU100 PO; +FERSU300 PO; +MIRALAX17 GM PO; +Percocet 5-3251 EACH PO; +SODIUM CHLORID100 ML IR
[2021-05-10 12:08] LABS: Source, Urine Foley catheter
[2021-05-10 12:12] LABS: Bilirubin, Urine Neg (Neg); Blood, Urine 5+ (Neg); Glucose Qualitative, Urine Neg (Neg); Ketones, Urine Neg (Neg); Leukocyte Esterase, Urine 3+ (Neg); Nitrite, Urine Pos (Neg); Protein, Urine 3+ (Neg); Specific Gravity, Urine 1.015 (1.003-1.022); Urobilinogen, Urine NORM (Normal)
[2021-05-10 12:21] LABS: Appearance, Urine Cloudy (Clear); Color, Urine Pale Yellow (P-Yellow)
[2021-05-10 12:22] LABS: Bacteria Many /hpf; Red Blood Cells, Urine 25-50 /hpf (0-2); Squamous Epithelial Cells Few /hpf (Few)
[2021-05-10 12:23] LABS: Amorphous Light (0-Heavy)
[2021-05-10 12:48] LABS: BASOPHILS ABSOLUTE AUTO 0.08 K/mm3 (0.00-0.23); BASOPHILS PERCENT AUTO 0 % (0-2); EOSINOPHILS ABSOLUTE AUTO 0.16 K/mm3 (0.00-0.68); EOSINOPHILS PERCENT AUTO 1 % (0-6); Hematocrit 37.2 % (37.0-53.0); Hemoglobin 11.6 g/dL (13.5-17.5); IMMATURE GRAN ABSOLUTE AUTO 0.13 K/mm3 (0.00-0.10); IMMATURE GRAN PERCENT AUTO 1 % (0-1); LYMPHOCYTES ABSOLUTE AUTO 0.49 K/mm3 (0.84-5.20); LYMPHOCYTES PERCENT AUTO 3 % (21-46); MONOCYTES ABSOLUTE AUTO 0.95 K/mm3 (0.16-1.47); MONOCYTES PERCENT AUTO 5 % (4-13); Mean Corpuscular HGB 26.7 pg (26.0-34.0); Mean Corpuscular HGB Conc 31.2 g/dL (31.5-36.5); Mean Corpuscular Volume 86 fL (80-100); Mean Platelet Volume 9.9 fL (9.1-12.4); NEUTROPHILS ABSOLUTE AUTO 17.23 K/mm3 (1.96-9.15); NEUTROPHILS PERCENT AUTO 91 % (41-73); Platelet Count 536 K/mm3 (150-400); RDW Coefficient Variation 16.9 % (11.7-14.2); Red Blood Cell Count 4.34 M/mm3 (4.30-5.90); White Blood Cell Count 19.04 K/mm3 (4.00-11.30)
[2021-05-10 13:10] LABS: Alanine Aminotransfer (ALT/SGP 15 U/L (12-78); Albumin, Blood 2.9 g/dL (3.4-5.0); Albumin/Globulin Ratio 0.6 (0.8-1.8); Alk Phos 63 U/L (50-136); Anion Gap 8 mmol/L (6-16); Aspartate Aminotrans (AST/SGOT 14 U/L (12-37); Bilirubin, Total 0.4 mg/dL (0.1-1.0); Blood Urea Nitrogen 19 mg/dL (8-24); Bun/Creatinine Ratio 32.5 (12.0-20.0); CO2, Blood 25 mmol/L (21-32); Calcium, Blood 10.9 mg/dL (8.5-10.1); Chloride, Blood 102 mmol/L (98-108); Creatinine, Blood 0.59 mg/dL (0.60-1.20); Globulin, Blood 4.6 g/dL (2.2-4.0); Glomerular Filtration Rate >60 (60-); Glucose, Blood 111 mg/dL (70-99); Potassium, Blood 4.2 mmol/L (3.5-5.5); Sodium, Blood 135 mmol/L (136-145); Total Protein, Blood 7.5 g/dL (6.4-8.2)
[2021-05-10 13:35] LABS: Influenza A, PCR NEGATIVE (NEGATIVE); Influenza B, PCR NEGATIVE (NEGATIVE); Resp Syncytial Virus, PCR NEGATIVE (NEGATIVE); SARS-Cov-2 (COVID-19) PCR, MMC NEGATIVE (NEGATIVE)
--- NOTE | 2021-05-10 17:57 | NUR ---
END OF SHIFT SUMMARY: PATIENT CAME FROM ED, WITH SOFT MAP, 1 L BOLUS GIVEN, MAP MILDLY IMPROVED, VERGARA DRAINING TO GRAVITY WITH VERY IRREGULAR SEDIMENT. DENIES CHEST PAIN, HAS BEEN SLEEPING BUT IS EASILY AWAKABLE. RT GAVE DUONEB TREATMENT DUE TO COARSE AND WHEEZY LUNGS THROUGHOUT. PATIENT ON CONTINUOUS FLUIDS NS 100/HR AT THIS TIME. PATIENT HAS ORDERS FOR SCD AND CHEMICAL PROPHALAXIS. IS GENERALIZED WEAK IN ALL 4 EXTREMES, GRUMPY FLAT AND WITHDRAWN AT BASELINE. POTENTIALLY HOMELESS, OR DISPLACED HOUSING WILL TELL NIGHT TO INFORM NEXT SHIFT AND TALK WITH PALLIATIVE CARE. PATIENT HAS NO CONCERNS, GOALS, COMMENTS, AT THIS TIME WILL CONTINUE TO MONITOR.
[2021-05-11 05:35] LABS: Alanine Aminotransfer (ALT/SGP 12 U/L (12-78); Albumin, Blood 2.1 g/dL (3.4-5.0); Albumin/Globulin Ratio 0.6 (0.8-1.8); Alk Phos 56 U/L (50-136); Anion Gap 7 mmol/L (6-16); Aspartate Aminotrans (AST/SGOT 11 U/L (12-37); Bilirubin, Total 0.1 mg/dL (0.1-1.0); Blood Urea Nitrogen 14 mg/dL (8-24); Bun/Creatinine Ratio 26.8 (12.0-20.0); CO2, Blood 22 mmol/L (21-32); Chloride, Blood 108 mmol/L (98-108); Creatinine, Blood 0.52 mg/dL (0.60-1.20); Globulin, Blood 3.4 g/dL (2.2-4.0); Glomerular Filtration Rate >60 (60-); Glucose, Blood 136 mg/dL (70-99); Potassium, Blood 3.5 mmol/L (3.5-5.5); Sodium, Blood 137 mmol/L (136-145)
[2021-05-11 06:05] LABS: Calcium, Blood 8.9 mg/dL (8.5-10.1); Total Protein, Blood 5.5 g/dL (6.4-8.2)
[2021-05-11 06:15] LABS: BASOPHILS ABSOLUTE AUTO 0.07 K/mm3 (0.00-0.23); BASOPHILS PERCENT AUTO 1 % (0-2); EOSINOPHILS ABSOLUTE AUTO 0.07 K/mm3 (0.00-0.68); EOSINOPHILS PERCENT AUTO 1 % (0-6); Hematocrit 28.9 % (37.0-53.0); IMMATURE GRAN ABSOLUTE AUTO 0.02 K/mm3 (0.00-0.10); IMMATURE GRAN PERCENT AUTO 0 % (0-1); LYMPHOCYTES ABSOLUTE AUTO 0.68 K/mm3 (0.84-5.20); LYMPHOCYTES PERCENT AUTO 8 % (21-46); MONOCYTES ABSOLUTE AUTO 0.43 K/mm3 (0.16-1.47); MONOCYTES PERCENT AUTO 5 % (4-13); Mean Corpuscular HGB 27.2 pg (26.0-34.0); Mean Corpuscular HGB Conc 31.1 g/dL (31.5-36.5); Mean Corpuscular Volume 87 fL (80-100); Mean Platelet Volume 10.3 fL (9.1-12.4); NEUTROPHILS ABSOLUTE AUTO 7.84 K/mm3 (1.96-9.15); NEUTROPHILS PERCENT AUTO 86 % (41-73); Platelet Count 414 K/mm3 (150-400); RDW Coefficient Variation 17.2 % (11.7-14.2); RDW Standard Deviation 54.7 fL (35.1-46.3); Red Blood Cell Count 3.31 M/mm3 (4.30-5.90); White Blood Cell Count 9.11 K/mm3 (4.00-11.30)
--- NOTE | 2021-05-11 18:00 | NUR ---
SHIFT SUMMARY; ASSUMED CARE AT 0700. A/A/OX4. REPOSITIONS SELF ON BARB BREENEY IN PLACE DRAINING CLOUDY YELLOW URINE. IV FLUIDS INFUSING AT 100ML/HR, TAKING PO FOOD AND FLUIDS WITHOUT DIFFICULTY. STATUS CHANGED TO MED NO TELE TODAY. PLAN FOR DC TOMORROW AFTER EVAL BY PT/OT. NO ACUTE MEDICAL CHANGES DURING SHIFT. WILL CONTINUE TO MONITOR AND TREAT UNTIL CHANGE OF SHIFT.
[2021-05-12 04:16] LABS: BASOPHILS ABSOLUTE AUTO 0.02 K/mm3 (0.00-0.23); BASOPHILS PERCENT AUTO 0 % (0-2); EOSINOPHILS ABSOLUTE AUTO 0.49 K/mm3 (0.00-0.68); EOSINOPHILS PERCENT AUTO 8 % (0-6); Hematocrit 28.2 % (37.0-53.0); Hemoglobin 8.7 g/dL (13.5-17.5); IMMATURE GRAN ABSOLUTE AUTO 0.02 K/mm3 (0.00-0.10); IMMATURE GRAN PERCENT AUTO 0 % (0-1); LYMPHOCYTES ABSOLUTE AUTO 1.06 K/mm3 (0.84-5.20); LYMPHOCYTES PERCENT AUTO 17 % (21-46); MONOCYTES ABSOLUTE AUTO 0.62 K/mm3 (0.16-1.47); MONOCYTES PERCENT AUTO 10 % (4-13); Mean Corpuscular HGB 26.8 pg (26.0-34.0); Mean Corpuscular HGB Conc 30.9 g/dL (31.5-36.5); Mean Corpuscular Volume 87 fL (80-100); Mean Platelet Volume 10.2 fL (9.1-12.4); NEUTROPHILS ABSOLUTE AUTO 4.11 K/mm3 (1.96-9.15); NEUTROPHILS PERCENT AUTO 65 % (41-73); Platelet Count 403 K/mm3 (150-400); RDW Standard Deviation 54.4 fL (35.1-46.3); Red Blood Cell Count 3.25 M/mm3 (4.30-5.90); White Blood Cell Count 6.32 K/mm3 (4.00-11.30)
[2021-05-12 04:42] LABS: Anion Gap 5 mmol/L (6-16); Blood Urea Nitrogen 9 mg/dL (8-24); Bun/Creatinine Ratio 17.2 (12.0-20.0); CO2, Blood 22 mmol/L (21-32); Calcium, Blood 8.6 mg/dL (8.5-10.1); Chloride, Blood 111 mmol/L (98-108); Creatinine, Blood 0.52 mg/dL (0.60-1.20); Glomerular Filtration Rate >60 (60-); Glucose, Blood 108 mg/dL (70-99); Phosphorus, Blood 2.4 mg/dL (2.5-4.9); Potassium, Blood 3.5 mmol/L (3.5-5.5); Sodium, Blood 138 mmol/L (136-145)
--- NOTE | 2021-05-12 05:24 | NUR ---
SHIFT SUMMARY PT ALERT AND ORIENTED X4. APPEARANCE IMPROVED FROM PREVIOUS EVENING, LOOKS LESS PALE. ON RA SATS OVER 97%. BP SOFT BUT STABLE. PT STATES THAT HIS BP IS ALWAYS LOW. VERGARA DRAINING DARK YELLOW URINE WITH CLOUDY SEDIMENT TO GRAVITY. C/O 8/10 LOWER ABDOMINAL PAIN. RELIEVED PER EMAR. IN BED SLEEPING WITH CALL ALARM AT SIDE. WILL CONTINUE TO MONITOR UNTIL REPORT GIVEN TO DAYSHIFT RN
[2021-05-12] MEDS ORDERED: CEFP200 PO (16:00)
[2021-05-12] MEDS ORDERED: LACT PO (16:01)
[2021-05-12] MEDS ORDERED: Acetaminophen325 M1 PO (16:01)
--- NOTE | 2021-05-12 17:02 | NUR ---
SHIFT SUMMARY; ASSUMED CARE AT 0700. A/A/OX4, WORKED WITH PT/OT TODAY. DISCHARGE INSTRUCTIONS GIVEN TO PT WITH CLEAR UNDERSTANDING. [facility]. MEDICATED PRIOR TO DISCHARGE WITH THAO PT TO ELEVATOR INSTALLER APPRENTICE RX TOMORROW. DISCHARGED [facility]IA [facility] TO [facility] WHERE PT HAS BEEN STAYING.
== END 2021-05-12 17:00 | disposition home or self-care (01) | DRG 698 ==
LOC: ER 10:47 → PCU 13:33 → ER 15:03 → PCU 15:16
PROVIDERS: Emergency Medicine; Internal Medicine; Nurse Practitioner Acute Care; ADMIT Internal Medicine
DX: T83.511A Infection and inflammatory reaction due to indwelling urethral catheter, initial encounter (principal); E43 Unspecified severe protein-calorie malnutrition; A41.9 Sepsis, unspecified organism; R64 Cachexia; Z68.1 Body mass index [BMI] 19.9 or less, adult; J44.1 Chronic obstructive pulmonary disease with (acute) exacerbation; N39.0 Urinary tract infection, site not specified; Z20.822 Contact with and (suspected) exposure to COVID-19; D63.0 Anemia in neoplastic disease; E83.52 Hypercalcemia; C67.9 Malignant neoplasm of bladder, unspecified; D50.9 Iron deficiency anemia, unspecified; F17.210 Nicotine dependence, cigarettes, uncomplicated; Z98.890 Other specified postprocedural states; Y84.6 Urinary catheterization as the cause of abnormal reaction of the patient, or of later complication, without mention of misadventure at the time of the procedure; Z88.0 Allergy status to penicillin; Z79.899 Other long term (current) drug therapy
CPT/HCPCS: 0241U; 36415; 51702; 51798; 80053; 80069; 81001; 83605; 83735; 85025; 87040; 87086; 94640; 94760; 96374; 97161; 97165; 97535; 99284-25; A9270; J0696; J1650; J3010; J7030; J7040

== ENCOUNTER 2021-06-17 19:45 | Inpatient (IN) | payer OTHER ==
[~2021-06-17] VITALS: Ht 157.5 cm; Wt 43.1 kg
[~2021-06-17 19:45] MED LIST changes: +Acetaminophen325 M1 PO; +CEFP200 PO; +LACT PO
[2021-06-17 20:40] LABS: Hematocrit 39.6 % (37.0-53.0); Hemoglobin 12.7 g/dL (13.5-17.5); Mean Corpuscular HGB 26.3 pg (26.0-34.0); Mean Corpuscular HGB Conc 32.1 g/dL (31.5-36.5); Mean Corpuscular Volume 82 fL (80-100); Mean Platelet Volume 12.5 fL (9.1-12.4); Platelet Count 70 K/mm3 (150-400); RDW Coefficient Variation 16.6 % (11.7-14.2); RDW Standard Deviation 50.2 fL (35.1-46.3); Red Blood Cell Count 4.82 M/mm3 (4.30-5.90); White Blood Cell Count 3.53 K/mm3 (4.00-11.30)
[2021-06-17 20:51] LABS: Base Excess Venous -3.2 mmol/L; PCO2 Venous 52.7 mmHg (38-42); pH Blood Venous 7.26 (7.34-7.37)
[2021-06-17 21:02] LABS: BASOPHILS PERCENT MAN 0 % (0-2); EOSINOPHILS PERCENT MAN 0 % (0-6); LYMPHOCYTES ABSOLUTE MAN 0.91 K/mm3 (0.84-5.20); LYMPHOCYTES PERCENT MAN 26 % (21-46); MONOCYTES PERCENT MAN 0 % (4-13); NEUTROPHILS ABSOLUTE MAN 2.61 K/mm3 (1.96-9.15); SEG NEUTROPHILS PERCENT MAN 74 % (41-73); TOTAL CELLS COUNTED 100
[2021-06-17 21:08] LABS: Albumin, Blood 2.4 g/dL (3.4-5.0); Albumin/Globulin Ratio 0.5 (0.8-1.8); Bilirubin, Total 0.3 mg/dL (0.1-1.0); Bun/Creatinine Ratio 38.1 (12.0-20.0); Creatinine, Blood 2.02 mg/dL (0.60-1.20); Globulin, Blood 4.5 g/dL (2.2-4.0); Potassium, Blood 4.8 mmol/L (3.5-5.5); Total Protein, Blood 6.9 g/dL (6.4-8.2)
--- NOTE | 2021-06-18 00:56 | NUR ---
PT ARRIVES AROUND 2345 TO ICU 6, HE IS NOT RESPONDING TO STAFF WELCOMING HIM TO THE ROOM. HE HAS AN IJ IN THE LEFT NECK WITH FLUIDS @ 150ML/HR, 22G IN THE RIGHT WRIST, HE IS DIRTY, SMELLY AND COVERED IN DRIED FECES. HE HAS A TEMP VERGARA WITH NOTHING IN THE TUBING. HE IS VISIBLY SHAKING WITH GOOSE BUMPS NOTED. PT TURNED AND CLEANED, REDDENED AREA ON THE LEFT GLUTEAL FOLD BY THE COCCYX, PICTURE MADE. COVERED WITH PADDING. LEGS WASHED AND DRIED AND PAS PLACED BILATERALLY. PT'S BACK AND HANDS AND FACE WASHED, PT GROANS AND MOANS BUT NON VERBAL. PT IS CURLED UP ON HIS LEFT SIDE WITH WARM BLANKETS ON, VERGARA TEMP READING 101.7. BP STABLE WITH MAP >65, LEVO ON SB. NOTED THAT PATIENT HAS HAD A 13KG WEIGHT LOSS SINCE HIS ADMISSION LAST MONTH.
[2021-06-18 02:16] LABS: Bun/Creatinine Ratio 37.6 (12.0-20.0); Calcium, Blood 14.8 mg/dL (8.5-10.1); Creatinine, Blood 2.21 mg/dL (0.60-1.20); Potassium, Blood 3.9 mmol/L (3.5-5.5)
--- NOTE | 2021-06-18 02:36 | NUR ---
LAB CALLED WITH A CRITICAL VALUE ON THE CALCIUM OF 14.8 NOTIFIED WHO STATED TO CONTINUE WITH THE FLUIDS AT 150ML/HR. NOTHING FURTHER.
--- NOTE | 2021-06-18 03:57 | NUR ---
VERGARA CATHETER IRRIGATED WITH NORMAL SALINE, BLOOD CLOTS RETURNED, MINIMAL URINE OUTPUT.
--- NOTE | 2021-06-18 05:34 | NUR ---
PT STARTED TO WAKE UP SOME, TRIED SOME WATER, IT WAS VERY COLD AND THEN HE BEGAN SHIVERING AND SHIVERING AND SHIVERING SOME MORE. HE BEGAN MOANING, "COLD, COLD, COLD". HE CONTINUES TO HAVE RED CLOTS RETURNED FROM THE VERGARA CATHETER. HE ONLY HAD 140 URINE OUTPUT. HE IS ON THE SECOND BAG OF NS @ 150ML PER HOUR AND THE NOREPINEPHRINE WAS STARTED AT 0330 AND IS RUNNING AT 4MCG/ MIN. WILL CONTINUE TO MONITOR AND TREAT, REPORT OFF WHEN DAY SHIFT AVAILABLE.
--- NOTE | 2021-06-18 05:56 | NUR ---
PT'S TEMPERATURE VIA VERGARA CATH CLIMBING RAPIDLY, WATCHING IT CLIMB. NOW AT 103.1, CALL TO FOR TYLENOL ORDER. ORDER RECEIVED. WILL MEDICATE PER ORDERS.
[2021-06-18 06:25] LABS: Source, Urine Foley catheter
[2021-06-18 06:44] LABS: Bilirubin, Urine Neg (Neg); Blood, Urine 5+ (Neg); Glucose Qualitative, Urine Neg (Neg); Ketones, Urine 1+ (Neg); Leukocyte Esterase, Urine 3+ (Neg); Nitrite, Urine Neg (Neg); Protein, Urine 4+ (Neg); Urobilinogen, Urine NORM (Normal)
[2021-06-18 06:49] LABS: Appearance, Urine Bloody (Clear); Bacteria Many /hpf; Color, Urine Red (P-Yellow); Red Blood Cells, Urine TNTC /hpf (0-2); Squamous Epithelial Cells Mod /hpf (Few); White Blood Cells, Urine TNTC /hpf (0-5)
[2021-06-18 08:04] LABS: BASOPHILS ABSOLUTE AUTO 0.08 K/mm3 (0.00-0.23); BASOPHILS PERCENT AUTO 0 % (0-2); Hematocrit 33.6 % (37.0-53.0); Hemoglobin 10.6 g/dL (13.5-17.5); LYMPHOCYTES ABSOLUTE AUTO 0.26 K/mm3 (0.84-5.20); LYMPHOCYTES PERCENT AUTO 1 % (21-46); MONOCYTES ABSOLUTE AUTO 0.14 K/mm3 (0.16-1.47); MONOCYTES PERCENT AUTO 1 % (4-13); Mean Corpuscular HGB 26.1 pg (26.0-34.0); Mean Corpuscular HGB Conc 31.5 g/dL (31.5-36.5); Mean Corpuscular Volume 83 fL (80-100); RDW Coefficient Variation 17.1 % (11.7-14.2); RDW Standard Deviation 52.4 fL (35.1-46.3); Red Blood Cell Count 4.06 M/mm3 (4.30-5.90); White Blood Cell Count 18.56 K/mm3 (4.00-11.30)
[2021-06-18 08:13] LABS: EOSINOPHILS PERCENT AUTO 0 % (0-6); IMMATURE GRAN ABSOLUTE AUTO 0.11 K/mm3 (0.00-0.10); IMMATURE GRAN PERCENT AUTO 1 % (0-1); NEUTROPHILS ABSOLUTE AUTO 17.97 K/mm3 (1.96-9.15); NEUTROPHILS PERCENT AUTO 97 % (41-73); Platelet Count 50 K/mm3 (150-400)
[2021-06-18 08:15] LABS: Base Excess Venous -3.3 mmol/L; Bicarbonate Venous 22.5 mmol/L (24.0-30.0); PCO2 Venous 26.5 mmHg (38-42); PO2 Venous 149 mmHg (38-42); pH Blood Venous 7.49 (7.34-7.37)
--- NOTE | 2021-06-18 08:36 | NUR ---
CARE OF PT ASUMED AT 0700. PT LETHARGIC, NON-VERBAL EXCEPT FOR MOANS. DID ATTEMPTS TO WEAKLY VP PURCHASING HAND TO COMMAND. PT HYPOTENSIVE W MAP <65. LEVOPHED TITRATED UP TO 10MCG. PT TACHYCARDIC. SATS 97% ON RA. 14CC PER BLADDER SCANNER. CATH IRRIGATED, SMALL AMT OF BLOOD IRRIGATED. DR ALDANA CALLED AND UPDATED. DR ALDANA AT BEDSIDE SHORTLY. LR 1LI BOLUS STARTED TO LEFT EJ. EJ INFILTARTED SHORTLY AFTER BOLUS STARTED, LEVOPHED WAS INFUSING AT LEFT EJ WELL. PICC LINE STARTED TO MONTY W/O DIFFICULTY IN UNDER 15MIN. LEVOPHED AT 15MCG INFUSING TO PICC WELL LR BOLUS. WBC ELEVATED, VBG IMPROVED, PLATELET CRITICAL LOW AT 50, WILL UPDATE DR ALDANA SHORTLY. MAP IS NOW 77.
--- NOTE | 2021-06-18 11:03 | NUR ---
PT GIVEN FULL BEDBATH. MEPILEX REMOVED FROM COCCYX. DARK PURPLE NON-BLANCHING PRESSURE ULCER THAT WAS NOTED ON ADMIT OBSERVED. NEW MEPILEX PLACED. PT HAS A COUPLE OTHER RED SPOTS ALONG SPINE FROM PRESSURE. LEVOPHED GTT DOWN TO 10MCG. PT TAKEN FOR CT OF ABD/PELVIS. PT MORE AWAKE, STILL MOANS WITH ANY CARE.
--- NOTE | 2021-06-18 11:14 | NUR ---
Pt resting in bed with his eyes closed. Pt is minimally responsive and briefly opens his eyes to verbal stimuli. Pt is known to this rewriter from previous hospital stay. Pt appears frail and significantly cachectic. Spoke with Primary RN Mi and discussed case. Pt just back from STAT CT. Pressors are being weaned down. Mi reports Pt is most likely unable to care for himself any longer. Palliative Care will remain available for supportive and therapeutic visits. Pt may need decision maker.
--- NOTE | 2021-06-18 11:16 | NUR ---
THERE IS NO SWELLING OR BLANCHING WHERE LEFT EJ INFILTRATED EARLIER. TISSUE APPEARS WNL. WILL HOLD REGITINE FOR NOW AND DISCUSS Richard BATISTA
--- NOTE | 2021-06-18 11:28 | NUR ---
Late Entry from previous note. [facility] No advanced directive or POLST on file. Pt has a friend named Wilber who is listed as NOK in [employer]. Attempted to call phone number provided. Female who answered phone reports wrong number.
--- NOTE | 2021-06-18 13:45 | NUR ---
DR ALDANA AT BEDSIDE. FULL UPDATE GIVEN. PT HAS HAD MINIMAL U/O <20CC. REGITINE TO BE HELD TISSUE STILL APPEARS TO BE WNL. LEVOPHED DOWN TO 6MCG.
[2021-06-18 14:36] LABS: Hematocrit 29.7 % (37.0-53.0); Hemoglobin 9.5 g/dL (13.5-17.5)
[2021-06-18 14:53] LABS: Albumin, Blood 1.8 g/dL (3.4-5.0); Anion Gap 7 mmol/L (6-16); Blood Urea Nitrogen 83 mg/dL (8-24); Bun/Creatinine Ratio 43.2 (12.0-20.0); CO2, Blood 23 mmol/L (21-32); Chloride, Blood 109 mmol/L (98-108); Creatinine, Blood 1.92 mg/dL (0.60-1.20); Glomerular Filtration Rate 35 (60-); Glucose, Blood 136 mg/dL (70-99); Phosphorus, Blood 3.3 mg/dL (2.5-4.9); Potassium, Blood 3.7 mmol/L (3.5-5.5); Sodium, Blood 139 mmol/L (136-145)
[2021-06-18 14:55] LABS: Calcium, Blood 12.7 mg/dL (8.5-10.1)
[2021-06-18 16:03] LABS: Influenza A, PCR NEGATIVE (NEGATIVE); Influenza B, PCR NEGATIVE (NEGATIVE); Resp Syncytial Virus, PCR NEGATIVE (NEGATIVE); SARS-Cov-2 (COVID-19) PCR, MMC NEGATIVE (NEGATIVE)
--- NOTE | 2021-06-18 16:10 | NUR ---
PT TO BE TRANSFERED TO [facility] ICU FOR UROLOGY COVERAGE PT MAY REQUIRE STENT. COBRA TRANSFER ORDERS COMPLETED BY DR ALDANA. LEVOPHED AT 8MCG TO KEEP MAP >65. PT SLEEPING, DOES AROUSE AND MOAN/CRY WITH CARE/TURNS.
--- NOTE | 2021-06-18 16:53 | NUR ---
REPORT GIVEN TO DAVIS AT [facility]. REACH WILL BE HERE WITHIN THE HOUR FOR GROUND TRANSFER. NO OTHER CHANGES.
== END 2021-06-18 17:30 | disposition short-term general hospital (02) | DRG 871 ==
LOC: ER 19:45 → ICUW 23:42 → ICUE 23:42
PROVIDERS: Emergency Medicine; Family Medicine; ADMIT Internal Medicine
PROC: 3E03329 Introduction of Other Anti-infective into Peripheral Vein, Percutaneous Approach (ICD-10-PCS; principal; 2021-06-17)
PROC: 02HV33Z Insertion of Infusion Device into Superior Vena Cava, Percutaneous Approach (ICD-10-PCS; 2021-06-17)
PROC: 3E043XZ Introduction of Vasopressor into Central Vein, Percutaneous Approach (ICD-10-PCS; 2021-06-17)
DX: A41.9 Sepsis, unspecified organism (principal); R65.21 Severe sepsis with septic shock; E43 Unspecified severe protein-calorie malnutrition; G92.8 Other toxic encephalopathy; R64 Cachexia; N17.9 Acute kidney failure, unspecified; Z68.1 Body mass index [BMI] 19.9 or less, adult; N13.30 Unspecified hydronephrosis; C78.6 Secondary malignant neoplasm of retroperitoneum and peritoneum; R31.9 Hematuria, unspecified; D72.829 Elevated white blood cell count, unspecified; Z20.822 Contact with and (suspected) exposure to COVID-19; C67.9 Malignant neoplasm of bladder, unspecified; D72.819 Decreased white blood cell count, unspecified; D69.6 Thrombocytopenia, unspecified; E83.52 Hypercalcemia; D63.1 Anemia in chronic kidney disease; E86.1 Hypovolemia; J44.9 Chronic obstructive pulmonary disease, unspecified; F17.200 Nicotine dependence, unspecified, uncomplicated; E86.0 Dehydration; I95.9 Hypotension, unspecified; D50.9 Iron deficiency anemia, unspecified; Z88.0 Allergy status to penicillin; Z98.890 Other specified postprocedural states; Z79.899 Other long term (current) drug therapy
CPT/HCPCS: 0241U; 36415; 36569; 51702; 71045; 74176; 80048; 80053; 80069; 81001; 82140; 82803; 83605; 83880; 84484; 85014; 85018; 85025; 87040; 87077; 87086; 87186; 93005; 93010; 96374; 96375; 99285-25; A9270; C1751; J0692; J0696; J2405; J7030; J7060; J7120